=== PATIENT | female | born 1995 | race Caucasian/White ===

== ENCOUNTER 2018-02-28 05:10 | Emergency (ER) | payer SELFPAY ==
[2018-02-28] MEDS ORDERED: DIPHENHYDRAMINE HCL 50 MG/ML VIAL IV ONE (05:45)
[2018-02-28] MEDS ORDERED: METHYLPREDNISOLONE INJ 125 MG/2 ML SDV IV ONE (05:45)
[2018-02-28] MEDS ORDERED: FAMOTIDINE INJ/PF 20 MG/2 ML SDV IV ONE (05:45)
--- NOTE | 2018-02-28 05:49 | ER Document Report ---
ED Medical Screen (RME) - General Chief Complaint: Allergic Reaction Stated Complaint: POSSIBLE ALLERGIC REACTION Time Seen by Provider: 02/28/18 05:41 Notes: 22-year-old female, chief complaint of new onset itching, she states she feels it mainly on her back and she feels a slight itchy sensation in her throat. She denies throat swelling, difficulty swallowing, difficulty breathing, or any other symptoms. She denies history of the same. Only reports past medical history of seasonal allergies, denies any other medical history. TRAVEL OUTSIDE OF THE [place] IN LAST 30 DAYS: No - Related Data Allergies/Adverse Reactions: acetaminophen [From Vicodin] Allergy (Verified 02/28/18 05:16) hydrocodone [From Vicodin] Allergy (Verified 02/28/18 05:16) Physical Exam - Vital signs Vitals: Temp Pulse Resp BP Pulse Ox 98.9 F 99 18 120/86 H 98 02/28/18 05:18 02/28/18 05:18 02/28/18 05:18 02/28/18 05:18 02/28/18 05:18 - HEENT Mucous membranes: Normal Pharynx: Normal. No: Uvular edema, Potential airway comprom. - Respiratory Respiratory status: No respiratory distress Breath sounds: Normal. No: Decreased air movement, Wheezing - Skin Skin irregularity: Rash - Urticarial rash noted scattered over the upper back, otherwise skin exam is unremarkable Course - Re-evaluation Re-evalutation: Urticaria noted on the patient's back, normal oropharyngeal exam, normal lung exam, no secondary symptoms in addition to the rest suggesting anaphylaxis. Starting antihistamines and steroids. I have greeted and performed a rapid initial assessment of this patient. A comprehensive ED assessment and evaluation of the patient, analysis of test results and completion of the medical decision making process will be conducted by additional ED providers. - Vital Signs Vital signs: Temp Pulse Resp BP Pulse Ox 98.9 F 99 18 120/86 H 98 02/28/18 05:18 02/28/18 05:18 02/28/18 05:18 02/28/18 05:18 02/28/18 05:18
--- NOTE | 2018-02-28 07:04 | ER Document Report ---
ED Allergic Reaction - General Mode of Arrival: Ambulatory Information source: Patient TRAVEL OUTSIDE OF THE [place] IN LAST 30 DAYS: No <KRISTY PETTIT - Last Filed: 02/28/18 08:07> <MELLISA ANNE - Last Filed: 02/28/18 08:07> - General Chief Complaint: Allergic Reaction Stated Complaint: POSSIBLE ALLERGIC REACTION Time Seen by Provider: 02/28/18 05:41 Notes: 22 y.o female presents to the ED with itching to her mouth, tongue and throat immediately after eating yogurt prior to arrival. Pt denies anything new or different with the yogurt and denies using any new detergents, soaps or lotions recently. Pt denies ever having an allergic reaction like this in the past. She denies any trouble breathing, NVD, or any malaise or cold like sx recently. Pt states that she is feeling a relief from the itching since given medications in the ED. (KRISTY PETTIT) - Related Data Allergies/Adverse Reactions: acetaminophen [From Vicodin] Allergy (Verified 02/28/18 05:16) hydrocodone [From Vicodin] Allergy (Verified 02/28/18 05:16) Past Medical History - General Information source: Patient - Social History Smoking Status: Never Smoker Cigarette use (# per day): No Chew tobacco use (# tins/day): No Frequency of alcohol use: None Drug Abuse: None Patient has suicidal ideation: No Patient has homicidal ideation: No Renal/ Medical History: Denies: Hx Peritoneal Dialysis Psychiatric Medical History: Reports: Hx Depression Past Surgical History: Reports: Hx Cholecystectomy, Hx Oral Surgery <KRISTY PETTIT - Last Filed: 02/28/18 08:07> - Social History Family History: None <MELLISA ANNE - Last Filed: 02/28/18 08:07> Review of Systems - Review of Systems Constitutional: See HPI. denies: Recent illness EENT: See HPI, Throat swelling, Mouth swelling, Other - mouth, tongue and throat itching and swelling. Cardiovascular: No symptoms reported Respiratory: See HPI - denies any malaise or recent cold sx, Cough. denies: Short of breath Gastrointestinal: See HPI. denies: Diarrhea, Nausea, Vomiting Genitourinary: No symptoms reported Female Genitourinary: No symptoms reported Musculoskeletal: No symptoms reported Skin: No symptoms reported Hematologic/Lymphatic: No symptoms reported Neurological/Psychological: No symptoms reported -: Yes All other systems reviewed and negative <KRISTY PETTIT - Last Filed: 02/28/18 08:07> Physical Exam <KRISTY PETTIT - Last Filed: 02/28/18 08:07> <MELLISA ANNE - Last Filed: 02/28/18 08:07> - Vital signs Vitals: Temp Pulse Resp BP Pulse Ox 98.9 F 99 18 120/86 H 98 02/28/18 05:18 02/28/18 05:18 02/28/18 05:18 02/28/18 05:18 02/28/18 05:18 - Notes Notes: PHYSICAL EXAM GENERAL: Alert, interacts well. No acute distress. HEAD: Normocephalic, atraumatic. EYES: Pupils equal, round, and reactive to light. Extraocular movements intact. ENT: Oral mucosa moist, tongue midline. No swelling. NECK: Full range of motion. Supple. Trachea midline. LUNGS: Clear to auscultation bilaterally, no wheezes, rales, or rhonchi. No respiratory distress. HEART: Regular rate and rhythm. No murmurs, gallops, or rubs. ABDOMEN: Soft, non-tender. Non-distended. Bowel sounds present in all 4 quadrants. No guarding, rebound, or rigidity. EXTREMITIES: Moves all 4 extremities spontaneously. No edema, radial and dorsalis pedis pulses 2/4 bilaterally. No cyanosis. NEUROLOGICAL: Alert and oriented x3. Normal speech. Biceps and patellar DTRs 2+ bilaterally. PSYCH: Normal affect, normal mood. SKIN: Warm, dry, normal turgor. No rashes or lesions noted. No hives. (KRISTY PETTIT) Course <KRISTY PETTIT - Last Filed: 02/28/18 08:07> <MELLISA ANNE - Last Filed: 02/28/18 08:07> - Re-evaluation Re-evalutation: 02/28/18 08:03 Patient rechecked at 7 AM and again at 8 AM, all hives have resolved, all symptoms have resolved, no sensation of tickle or swelling in her throat anymore. No swelling of the oral mucosa. Patient will be discharged to home, prescribed steroids, instructed on use of Pepcid and Benadryl. Discharged home. (MELLISA ANNE) - Vital Signs Vital signs: Temp Pulse Resp BP Pulse Ox 98.9 F 70 18 120/86 H 98 02/28/18 05:18 02/28/18 05:46 02/28/18 05:18 02/28/18 05:18 02/28/18 05:18 Discharge <KRISTY PETTIT - Last Filed: 02/28/18 08:07> <MELLISA ANNE - Last Filed: 02/28/18 08:07> - Discharge Clinical Impression: Allergic reaction Qualifiers: Encounter type: initial encounter Qualified Code(s): T78.40XA - Allergy, unspecified, initial encounter Condition: Stable Disposition: HOME, SELF-CARE Additional Instructions: Acute Allergic Reaction Your symptoms are due to an allergic reaction. Allergy can cause hives, swelling of the hands, feet, and face, hoarseness, and difficulty swallowing or breathing. It may be due to exposure to medication, animal dander, foods, infection, or insect bites. Medication is a common cause, even when prior use of this same medication caused no problems. Acute treatment may include adrenalin and antihistamines. Usually, the specific allergic agent can't be identified unless repeated episodes occur. Home treatment includes the following: (1) Stop any suspicious medications. This will be discussed with you. (2) Oral antihistamines for the next four to five days. Example, diphenhydramine (Benadryl) every four hours. (3) You may also use cimetidine (Tagamet), ranitidine (Zantac), or famotidine (Pepcid) every four hours if diphenhydramine is not controlling itching and hives. (4) Avoid aspirin until the hives completely disappear. (5) Avoid hot baths or showers until the hives are completely gone. Call the doctor if faintness, difficulty swallowing, tightness in the chest, or wheezing occurs. Prescriptions: Prednisone 40 mg PO DAILY #10 tablet Referrals: COSME LIAO MD [ACTIVE STAFF] - Follow up as needed Scribe Attestation: 02/28/18 08:07 I personally performed the services described in the documentation, reviewed and edited the documentation which was dictated to the scribe in my presence, and it accurately records my words and actions. (MELLISA ANNE) Scribe Documentation - Scribe Written by Iván:: Iván Chen [id number] 02/28/18 acting as scribe for :: Jose <KRISTY PETTIT - Last Filed: 02/28/18 08:07>
[2018-02-28 08:14] VITALS: BP 110/72
== END 2018-02-28 08:14 | disposition home or self-care (01) ==
LOC: ER 05:10
DX: T78.40XA Allergy, unspecified, initial encounter (principal); L29.9 Pruritus, unspecified; X58.XXXA Exposure to other specified factors, initial encounter; Z88.6 Allergy status to analgesic agent; Z90.49 Acquired absence of other specified parts of digestive tract
CPT/HCPCS: 99283; 96374; 96375; J1200; J2930; S0028